=== PATIENT | male | born 1960 | race Caucasian/White ===

== ENCOUNTER → 2022-03-13 10:49 | Outpatient (BNVA) | payer OTHER, SELFPAY | PROVIDERS: PCP Internal Medicine; Visit Provider Physician Assistant Surgical | DX: Z13.89 Encounter for screening for other disorder (principal) ==

== ENCOUNTER → 2022-03-20 13:26 | Outpatient (BNVA) | payer OTHER, SELFPAY | PROVIDERS: PCP Internal Medicine; Visit Provider Physician Assistant Surgical | DX: Z13.89 Encounter for screening for other disorder (principal) ==

== ENCOUNTER 2022-03-23 08:32 | Outpatient (REF) | payer OTHER, SELFPAY ==
--- NOTE | ~2022-03-23 | XR_ITS ---
EXAMINATION: XR CHEST CLINICAL INFORMATION: Morbid obesity secondary to excess calories. COMPARISON: None TECHNIQUE: 2 views of the chest were obtained. FINDINGS: No significant abnormality is noted involving the heart, lungs, mediastinum, bony thorax or soft tissues. XR/XR chest 2V IMPRESSION: No acute cardiopulmonary process.
--- NOTE | 2022-03-23 08:39 | ECG_ITS ---
Test Reason : E66.01 Morbid Obesity Blood Pressure : / mmHG Vent. Rate : 071 BPM Atrial Rate : 071 BPM P-R Int : 186 ms QRS Dur : 098 ms QT Int : 384 ms P-R-T Axes : 080 040 021 degrees QTc Int : 417 ms Sinus rhythm with Premature ventricular complexes Otherwise normal ECG No previous ECGs available Referred By: Tiago Barcenas Electronically Signed By:BLANCA KNIGHT MD
[2022-03-23 08:48] LABS: MANUAL DIFF FLAG NO
[2022-03-23 09:46] LABS: Basophils Absolute Auto 0.1 X10*3/uL (0.0-0.2); Basophils Percent Auto 0.8 % (0-2); Eosinophils Absolute Auto 0.1 X10*3/uL (0.0-0.4); Eosinophils Percent Auto 0.8 % (0-4); Hematocrit 44.2 % (42.0-52.0); Hemoglobin 14.7 g/dl (14.0-18.0); Imm Gran Abs Auto 0.05 X10*3/uL (0.00-0.03); Imm Gran Pct Auto 0.5 % (0.0-0.4); Lymphocytes Absolute Auto 2.9 X10*3/uL (1.2-4.9); Lymphocytes Percent Auto 27.6 % (20-40); Mean Corpuscular HGB Conc 33.3 g/dl (31.0-36.0); Mean Corpuscular Hemoglobin 29.3 pg (27.0-33.0); Mean Corpuscular Volume 88.2 fL (80.0-98.0); Mean Platelet Volume 10.9 fL (9.4-12.4); Monocytes Absolute Auto 1.1 X10*3/uL (0.1-1.2); Monocytes Percent Auto 10.6 % (2-11); Neutrophils Absolute Auto 6.3 x10*3/uL (2.0-8.3); Neutrophils Percent Auto 59.7 % (45-73); Platelet Count 367 X10*3/uL (160-400); Red Blood Count 5.01 X10*6/uL (4.60-5.80); White Blood Count 10.6 X10*3/uL (4.8-10.8)
[2022-03-23 10:49] LABS: Estimated Average Glucose 134 mg/dL; Hemoglobin A1c % 6.3 %
[2022-03-23 11:11] LABS: Alanine Aminotransferase 20 U/L (0-40); Albumin Level 4.4 g/dL (3.5-5.0); Alkaline Phosphatase 72 U/L (39-117); Anion Gap 16 (12-20); Aspartate Amino Transferase 20 U/L (5-37); Bilirubin Total 2.7 mg/dL (0.0-1.0); Blood Urea Nitrogen 33 mg/dL (9-16); C Reactive Protein 1.06 mg/dL (< or = 0.50); Calcium 10.2 mg/dL (8.4-10.2); Carbon Dioxide 28 mmol/L (22-29); Chloride 102 mmol/L (96-108); Cholesterol 113 mg/dL; Estimated Glomerular Filt Rate 57; Glucose Random 70 mg/dL (60-115); HDL Cholesterol 33 mg/dL; Iron 69 mcg/dL (45-160); LDL Cholesterol Calculated 46 mg/dl; Percent Iron Saturation 25 % (15-50); Potassium 5.1 mmol/L (3.3-5.1); Sodium 141 mmol/L (135-145); Total Iron Binding Capacity 273 mcg/dL (228-428); Total Protein 7.3 g/dL (6.5-8.0); Triglycerides 174 mg/dL; Unsaturated Iron Binding 204 ug/dL
[2022-03-23 11:23] LABS: Ferritin 328 ng/mL (20-250); Folate 8.5 ng/mL (> or = 4.0); Insulin 105 uU/mL (2-29); TSH reflex Free T4 3.63 uIU/mL (0.32-4.0); Vitamin B12 416 pg/mL (200-900); Vitamin D 25-OH Total 14.5 ng/mL (>30)
[2022-03-27 13:15] LABS: Calcium (PTHI) 10.3 mg/dL (8.6-10.3); PTHI 41 pg/mL (16-77)
[2022-03-28 17:09] LABS: Zinc 74 mcg/dL (60-130)
[2022-03-30 03:54] LABS: Vitamin A 72 mcg/dL (38-98)
[2022-04-01 15:38] LABS: Vitamin B1 8 nmol/L (8-30)
== END 2022-03-23 08:33 | disposition home or self-care (01) ==
LOC: HO.XRAY 08:32
PROVIDERS: PCP Internal Medicine; Visit Provider Physician Assistant Surgical
DX: E66.01 Morbid (severe) obesity due to excess calories (principal); E11.9 Type 2 diabetes mellitus without complications; E78.00 Pure hypercholesterolemia, unspecified
CPT/HCPCS: 36415; 71046; 80053; 80061; 82306; 82607; 82728; 82746; 83036; 83525; 83540; 83970; 84425; 84443; 84590; 84630; 85025; 86140; 93005

== ENCOUNTER → 2022-03-27 09:44 | Outpatient (BNVA) | payer OTHER, SELFPAY | PROVIDERS: PCP Internal Medicine; Visit Provider Physician Assistant Surgical | DX: Z13.89 Encounter for screening for other disorder (principal) ==

== ENCOUNTER 2022-04-24 | Outpatient (REF) | payer OTHER, SELFPAY ==
[2022-04-27 15:06] LABS: H Pylori Breath Test Negative (Negative)
== END 2022-04-24 00:01 | disposition home or self-care (01) ==
LOC: HO.LNP
PROVIDERS: Visit Provider Physician Assistant Surgical
DX: E11.9 Type 2 diabetes mellitus without complications (principal); E78.00 Pure hypercholesterolemia, unspecified; E66.01 Morbid (severe) obesity due to excess calories
CPT/HCPCS: 83013

== ENCOUNTER → 2022-04-24 08:28 | Outpatient (BNVA) | payer OTHER, SELFPAY | PROVIDERS: PCP Internal Medicine; Visit Provider Physician Assistant Surgical | DX: Z13.89 Encounter for screening for other disorder (principal) ==

== ENCOUNTER → 2022-04-26 13:20 | Outpatient (BNVA) | payer OTHER, SELFPAY | PROVIDERS: PCP Internal Medicine; Visit Provider Counselor Mental Health | DX: Z13.89 Encounter for screening for other disorder (principal) ==

== ENCOUNTER → 2022-05-03 10:15 | Outpatient (BNVA) | payer OTHER, SELFPAY | PROVIDERS: PCP Internal Medicine; Visit Provider Dietitian, Registered | DX: E66.01 Morbid (severe) obesity due to excess calories (principal) | CPT/HCPCS: 97802 ==

== ENCOUNTER 2022-05-17 07:50 | Outpatient (REF) | payer OTHER, SELFPAY ==
--- NOTE | ~2022-05-17 | FL_ITS ---
EXAMINATION: XR FL UPPER GI WITH AIR CLINICAL INFORMATION: Morbid obesity. COMPARISON: None available. TECHNIQUE: Air-contrast upper GI examination. FINDINGS: There is normal apposition of the vocal cords while saying E. There is normal elevation of the soft palate while saying candy. No nasopharyngeal reflux or tracheal aspiration was identified. There is normal esophageal motility without persistent stricture or ulceration. No hiatal hernia is seen. No gastroesophageal reflux was seen including with water siphon test. Patient swallowed half-inch diameter barium tablet without difficulty. The stomach demonstrates normal distensibility without abnormal mass or ulceration. There was no delay in gastric emptying. The duodenal bulb and sweep appeared unremarkable. FLUOROSCOPY TIME: 1.6 minutes. DOSE AREA PRODUCT: 27.861 Gy-cm2 (joiner-centimeter squared). FL/FL upper GI w air IMPRESSION: Normal air-contrast upper GI examination.
--- NOTE | ~2022-05-17 | US_ITS ---
EXAMINATION: US COMPLETE ABDOMEN WITH LIVER ELASTOGRAPHY CLINICAL INFORMATION: Morbid/severe obesity due to excess calories. COMPARISON: None available. TECHNIQUE: Real-time imaging of the abdominal viscera. Noninvasive ultrasound liver fibrosis assessment is performed using Jatinder ElastPQ point quantification shear wave elastography (2D-SWE) with a C5-2 MHz transducer. Multiple elastography samples are obtained. FINDINGS: PANCREAS: The pancreas is not visualized. ABDOMINAL AORTA: The proximal, middle, and distal aortic segments are normal in caliber. INFERIOR VENA CAVA: Visualized portions are normal. LIVER: Normal. The liver demonstrates enlarged in size measuring 20 cm. There is normal contour and diffuse increased echogenicity. No focal lesion or intrahepatic biliary duct dilatation. The right lobe measures 22.9 cm in length. The left lobe measures 11.6 cm in length. Portal flow is hepatopedal. Shear wave liver elastography is limited as unable to penetrate 2 cm below the capsule. Median stiffness is 1.9 m/s (reference: normal median stiffness is 1.3 m/s or less). IQR/median stiffness to assess sampling precision is 0.22 (reference: good quality data set is IQR/median stiffness of 0.15 or less). GALLBLADDER: There are echogenic gallstones without wall thickening or tenderness. COMMON BILE DUCT: Normal in caliber measuring 0.5 cm in diameter. RIGHT KIDNEY: Normal. No hydronephrosis. No renal calculi or focal parenchymal lesions. The kidney measures 11.7 cm in maximum dimension. LEFT KIDNEY: Normal. No hydronephrosis. No renal calculi or focal parenchymal lesions. The kidney measures 13.9 cm in maximum dimension. SPLEEN: Normal. The spleen measures 13.1 cm in maximum dimension. FREE FLUID: None. US/US abdomen comp w elastography IMPRESSION: 1. Cholelithiasis without tenderness or wall thickening. Mild hepatic steatosis without focal lesion. 2. Limited liver elastography: Median liver stiffness measures 1.9 m/s corresponding to cACLD suggestive. REFERENCE: Society of Radiologists in Ultrasound Liver Stiffness Thresholds (2020): LIVER STIFFNESS THRESHOLDS: *Liver Stiffness equal or less than 1.3 m/s: High probability of being normal. *Liver Stiffness less than 1.7 m/s: In the absence of other known clinical signs, rules out compensated advanced chronic liver disease. *Liver Stiffness 1.7-2.1 m/s: Suggestive of compensated advanced chronic liver disease but need further test for confirmation. *Liver Stiffness over 2.1 m/s: Rules in compensated advanced chronic liver disease. *Liver Stiffness over 2.4 m/s: Suggestive of clinically significant portal hypertension. QUALITY OF DATA SET: *IQR/Median value equal or less than 0.15 implies a quality data set. *IQR/Median value over 0.15 implies a poor quality data set. SIGNIFICANT CHANGE FROM PRIOR EXAM: Significant change if liver stiffness measurement is 10% or greater from prior exam. OTHER CONSIDERATIONS: The stage of liver fibrosis may be overestimated in the setting of acute hepatitis, liver inflammation, elevated liver function tests, hepatic vascular congestion, obstructive cholestasis, non-fasting state, and infiltrative diseases such as amyloidosis and lymphoma. In some patients with NAFLD, the liver stiffness thresholds for compensated advanced chronic liver disease may be lower. In causes other than viral hepatitis and NAFLD, liver stiffness thresholds are not well established.
== END 2022-05-17 07:51 | disposition home or self-care (01) ==
LOC: HO.US 07:50
PROVIDERS: PCP Internal Medicine; Visit Provider Physician Assistant Surgical
DX: Z01.818 Encounter for other preprocedural examination (principal); E66.01 Morbid (severe) obesity due to excess calories; E11.9 Type 2 diabetes mellitus without complications; E78.00 Pure hypercholesterolemia, unspecified
CPT/HCPCS: 74246; 76705; 76981

== ENCOUNTER → 2022-05-24 10:05 | Outpatient (BNVA) | payer OTHER, SELFPAY | PROVIDERS: PCP Internal Medicine; Visit Provider Counselor Mental Health | DX: Z13.89 Encounter for screening for other disorder (principal) ==

== ENCOUNTER → 2022-06-02 12:32 | Outpatient (BNVA) | payer OTHER, SELFPAY | PROVIDERS: PCP Internal Medicine; Visit Provider Surgery | DX: Z13.89 Encounter for screening for other disorder (principal) ==

== ENCOUNTER → 2022-06-05 08:09 | Outpatient (BNVA) | payer OTHER, SELFPAY | PROVIDERS: PCP Internal Medicine; Visit Provider Surgery | DX: E66.01 Morbid (severe) obesity due to excess calories (principal); I10 Essential (primary) hypertension; G47.33 Obstructive sleep apnea (adult) (pediatric); E78.00 Pure hypercholesterolemia, unspecified; K21.9 Gastro-esophageal reflux disease without esophagitis; R11.0 Nausea; Z01.818 Encounter for other preprocedural examination ==

== ENCOUNTER 2022-06-22 06:25 | Inpatient (IN) | payer MEDICARE, SELFPAY ==
[2022-06-15 10:22] LABS: MANUAL DIFF FLAG NO
[2022-06-15 11:01] LABS: Basophils Absolute Auto 0.1 X10*3/uL (0.0-0.2); Basophils Percent Auto 0.6 % (0-2); Eosinophils Absolute Auto 0.1 X10*3/uL (0.0-0.4); Eosinophils Percent Auto 0.6 % (0-4); Hematocrit 42.2 % (42.0-52.0); Hemoglobin 13.8 g/dl (14.0-18.0); Imm Gran Abs Auto 0.04 X10*3/uL (0.00-0.03); Imm Gran Pct Auto 0.4 % (0.0-0.4); Lymphocytes Absolute Auto 2.1 X10*3/uL (1.2-4.9); Mean Corpuscular HGB Conc 32.7 g/dl (31.0-36.0); Mean Corpuscular Hemoglobin 28.7 pg (27.0-33.0); Mean Corpuscular Volume 87.7 fL (80.0-98.0); Mean Platelet Volume 10.5 fL (9.4-12.4); Monocytes Absolute Auto 0.8 X10*3/uL (0.1-1.2); Monocytes Percent Auto 7.8 % (2-11); Neutrophils Absolute Auto 7.4 x10*3/uL (2.0-8.3); Neutrophils Percent Auto 70.6 % (45-73); Platelet Count 289 X10*3/uL (160-400); Red Blood Count 4.81 X10*6/uL (4.60-5.80); Red Cell Distribution Width 14.9 % (11.0-16.0); White Blood Count 10.5 X10*3/uL (4.8-10.8)
[2022-06-15 11:11] LABS: Estimated Average Glucose 105 mg/dL; Hemoglobin A1c % 5.3 %
[2022-06-15 11:12] LABS: INTERNATIONAL NORM RATIO 1.1 (0.9-1.1); Prothrombin Time 12.4 SEC (10.0-13.1)
[2022-06-15 11:14] LABS: Partial Thromboplastin Time 36.7 SEC (26.0-36.4)
[2022-06-15 12:01] VITALS: BP 109/52; PULSE 59; RESP 16; O2SAT 100; BMI 51.1
--- NOTE | 2022-06-15 12:16 | HO.ANESPROP2 ---
Documented by User: Esther Doll NP 06/15/22 12:29 HPI - Anesthesia Eval Consult details Narrative: 61yo M for Gastrectomy Sleeve,EGD,poss diaphragmatic hernia,poss ventral hernia,poss open, Cardiac cleared (CAD with stents 2009, 2016) [facility] Active Problems Active Problems: All Active Problems (Updated 06/15/22 @ 11:56 by Enriqueta Armstrong RN) Morbid obesity (Acute) ASIM (obstructive sleep apnea) (Acute) HTN (hypertension) (Acute) Diabetes (Acute) Hypercholesterolemia (Acute) Adjustment disorder (Acute) Past Medical History Medical History Adjustment disorder Asthma CAD (coronary artery disease) Chronic renal insufficiency Diabetes DJD (degenerative joint disease) Elevated cholesterol History of MRSA infection HTN (hypertension) Hypothyroid Insulin dependent type 2 diabetes mellitus Liver fibrosis Lymphedema Murmur Nephrolithiasis PVCs (premature ventricular contractions) Sleep apnea Sleep apnea treated with continuous positive airway pressure (CPAP) Varicose vein of leg Family History Family History Mother Diabetes High cholesterol Hypertension Cancer Father Hypertension Diabetes Heart disease Sister Diabetes Family history of problems with anesthesia: No Surgical History Surgical History History of knee replacement Hx of colonoscopy Hx of heart artery stent Hx of varicose vein ligation History of Problems with Anesthesia: No Social History Social History Are you a primary career coach to a significant other at home: No Do you presently have visiting nurse or other home services: No Alcohol intake: current Alcohol intake frequency: holidays/special occasions only Patient Tobacco Use Status: Never used Tobacco Use of substances other than those prescribed or required for medical reasons: No Have you been hit, kicked, punched, or otherwise hurt by someone within the past year? If so, by whom?: No Are you DNR?: No Advance Directives: No (Tamiko GarciaUqyhqdy-[id number] contact) Advance Directives Information Provided: No (patient declined) Advance Directives on File: No Recently lost weight without trying: No Eating poorly because of decreased appetite: No Nutrition Risks: No Nutritional Risk Poor oral hygiene: No (hx extraction X2) Narrative Narrative: No recent illness No CP/SOB with high level of ativity at the gym 2 x's weekly Meds Allergies Allergy/AdvReac Type Severity Reaction Status Date / Time METFORMIN AdvReac Mild Diarrhea Uncoded 06/05/22 10:13 Home Medications Medication Instructions Recorded Confirmed Last Taken Type CPAP (CPAP Machine/Device) 03/13/22 06/05/22 Unknown History atorvastatin 80 mg tablet 80 mg PO BEDTIME 03/13/22 06/15/22 Unknown History dulaglutide 3 mg/0.5 mL 3 mg subcut QWEEK 03/13/22 06/05/22 Unknown History subcutaneous pen injector (Trulicity) levothyroxine 50 mcg capsule 50 mcg PO QAM 03/13/22 06/15/22 06/22/22 04:45 History metoprolol succinate 200 mg 200 mg PO QAM 03/13/22 06/15/22 06/22/22 04:45 History tablet,extended release 24 hr omega-3 fatty acids-fish oil 360 1 cap PO DAILY 03/13/22 06/15/22 06/21/22 History mg-1,200 mg capsule (Fish Oil) cholecalciferol (vitamin D3) 125 250 mcg PO QAM 06/14/22 06/15/22 Unknown History mcg (5,000 unit) capsule insulin glargine 100 unit/mL (3 100 unit subcut QA 06/14/22 06/15/22 06/22/22 04:45 History mL) subcutaneous pen (Basaglar KwikPen U-100 Insulin) aspirin 325 mg tablet 325 mg PO QAM 06/15/22 06/15/22 06/16/22 History cyanocobalamin (vitamin B-12) 500 500 mcg PO QAM 06/15/22 06/15/22 Unknown History mcg tablet felodipine 2.5 mg tablet,extended 2.5 mg PO DAILY 06/22/22 Unknown History release 24 hr fluticasone propionate 50 intranasal 06/22/22 Unknown History mcg/actuation nasal spray,suspension Exam Exam Date and Time: June 15, 2022 1216 Height,Weight and Vital Signs: Height 5 ft 9 in Weight 156.943 kg Last Vital Signs Pulse 59 06/15/22 12:01 Resp 16 06/15/22 12:01 BP 109/52 L 06/15/22 12:01 Pulse Ox 100 05/04/23 12:01 O2 Del Method Room Air 06/15/22 12:01 Pertinent Lab Results Pertinent Lab Results: Laboratory Tests 06/15/22 06/15/22 06/15/22 10:15 10:15 10:15 WBC 10.5 RBC 4.81 Hgb 13.8 L Hct 42.2 MCV 87.7 MCH 28.7 MCHC 32.7 RDW 14.9 Plt Count 289 MPV 10.5 Immature Gran % (Auto) 0.4 Neut % (Auto) 70.6 Lymph % (Auto) 20.0 [place] % (Auto) 7.8 Eos % (Auto) 0.6 Baso % (Auto) 0.6 Lymph # (Auto) 2.1 [place] # (Auto) 0.8 Eos # (Auto) 0.1 Baso # (Auto) 0.1 Abs Immat Gran (auto) 0.04 H Absolute Neuts (auto) 7.4 Absolute Nucleated RBC 0.000 Nucleated RBC % (auto) 0.0 PT 12.4 INR 1.1 APTT 36.7 H Estimat Average Glucose 105 Hemoglobin A1c % 5.3 Blood Type Antibody Screen 06/15/22 10:15 WBC RBC Hgb Hct MCV MCH MCHC RDW Plt Count MPV Immature Gran % (Auto) Neut % (Auto) Lymph % (Auto) [place] % (Auto) Eos % (Auto) Baso % (Auto) Lymph # (Auto) [place] # (Auto) Eos # (Auto) Baso # (Auto) Abs Immat Gran (auto) Absolute Neuts (auto) Absolute Nucleated RBC Nucleated RBC % (auto) PT INR APTT Estimat Average Glucose Hemoglobin A1c % Blood Type O Positive Antibody Screen NEGATIVE Narrative Narrative: EKG 03/2022 Vent. Rate : 071 BPM ? ? Atrial Rate : 071 BPM ?? P-R Int : 186 ms? QRS Dur : 098 ms ? ? QT Int : 384 ms ? ? ? P-R-T Axes : 080 040 021 degrees ?? QTc Int : 417 ms ? Sinus rhythm with Premature ventricular complexes ? Otherwise normal ECG No previous ECGs available Airway Mallampati Class: I TM Dist: <=3cm Neck ROM: Full Loose/Missing/Broken Teeth: Yes (Two lower molars missing) Heart: RRR Lungs: CTAB Assessment and Plan Assessment Anesthesia Assessment: Anesthesia Plan Discussed and PAT Visit Final Anesthetic Review Family History of Problems with Anesthesia: No History of Problems with Anesthesia: No Documented by User: Tamiko Lopez MD 06/22/22 09:50 [facility] Past Medical History Medical History Adjustment disorder Asthma CAD (coronary artery disease) Chronic renal insufficiency Diabetes DJD (degenerative joint disease) Elevated cholesterol History of MRSA infection HTN (hypertension) Hypothyroid Insulin dependent type 2 diabetes mellitus Liver fibrosis Lymphedema Murmur Nephrolithiasis PVCs (premature ventricular contractions) Sleep apnea Sleep apnea treated with continuous positive airway pressure (CPAP) Varicose vein of leg Family History Family History Mother Diabetes High cholesterol Hypertension Cancer Father Hypertension Diabetes Heart disease Sister Diabetes Surgical History Surgical History History of knee replacement Hx of colonoscopy Hx of heart artery stent Hx of varicose vein ligation Social History Social History Are you a primary career coach to a significant other at home: No Do you presently have visiting nurse or other home services: No Alcohol intake: current Alcohol intake frequency: holidays/special occasions only Patient Tobacco Use Status: Never used Tobacco Use of substances other than those prescribed or required for medical reasons: No Have you been hit, kicked, punched, or otherwise hurt by someone within the past year? If so, by whom?: No Are you DNR?: No Advance Directives: No (Tamiko GarciaUnfeqjj-[id number] contact) Advance Directives Information Provided: No (patient declined) Advance Directives on File: No Recently lost weight without trying: No Eating poorly because of decreased appetite: No Nutrition Risks: No Nutritional Risk Poor oral hygiene: No (hx extraction X2) Meds Allergies Allergy/AdvReac Type Severity Reaction Status Date / Time METFORMIN AdvReac Mild Diarrhea Uncoded 06/05/22 10:13 Home Medications Medication Instructions Recorded Confirmed Last Taken Type CPAP (CPAP Machine/Device) 03/13/22 06/05/22 Unknown History atorvastatin 80 mg tablet 80 mg PO BEDTIME 03/13/22 06/15/22 Unknown History dulaglutide 3 mg/0.5 mL 3 mg subcut QWEEK 03/13/22 06/05/22 Unknown History subcutaneous pen injector (Trulicity) levothyroxine 50 mcg capsule 50 mcg PO QAM 03/13/22 06/15/22 06/22/22 04:45 History metoprolol succinate 200 mg 200 mg PO QAM 03/13/22 06/15/22 06/22/22 04:45 History tablet,extended release 24 hr omega-3 fatty acids-fish oil 360 1 cap PO DAILY 03/13/22 06/15/22 06/21/22 History mg-1,200 mg capsule (Fish Oil) cholecalciferol (vitamin D3) 125 250 mcg PO QAM 06/14/22 06/15/22 Unknown History mcg (5,000 unit) capsule insulin glargine 100 unit/mL (3 100 unit subcut QAM 06/14/22 06/15/22 06/22/22 04:45 History mL) subcutaneous pen (Basaglar KwikPen U-100 Insulin) aspirin 325 mg tablet 325 mg PO QAM 06/15/22 06/15/22 06/16/22 History cyanocobalamin (vitamin B-12) 500 500 mcg PO QAM 06/15/22 06/15/22 Unknown History mcg tablet felodipine 2.5 mg tablet,extended 2.5 mg PO DAILY 06/22/22 Unknown History release 24 hr fluticasone propionate 50 intranasal 06/22/22 Unknown History mcg/actuation nasal spray,suspension Exam Narrative Narrative: EKG 03/2022 Vent. Rate : 071 BPM ? ? Atrial Rate : 071 BPM ?? P-R Int : 186 ms? QRS Dur : 098 ms ? ? QT Int : 384 ms ? ? ? P-R-T Axes : 080 040 021 degrees ?? QTc Int : 417 ms Sinus rhythm with Premature ventricular complexes ? Otherwise normal ECG No previous ECGs available Airway Mallampati Class: III (full neck) Assessment and Plan Final Anesthetic Review NPO: Yes ASA Class: III Final Preanesthetic Review: Meds/Allgs Chart Reviewed, Consent Obtained/Reviewed and Anes Risks/Benef Reviewed Patient Risk: Intermediate Procedure Risk: Intermediate Anesthetic Plan Anesthetic Plan: GA Disposition: Standard PACU
[2022-06-15 12:24] LABS: Alanine Aminotransferase 11 U/L (0-40); Albumin Level 4.2 g/dL (3.5-5.0); Alkaline Phosphatase 76 U/L (39-117); Anion Gap 14 (12-20); Aspartate Amino Transferase 14 U/L (5-37); Bilirubin Total 2.5 mg/dL (0.0-1.0); Blood Urea Nitrogen 38 mg/dL (9-16); C Reactive Protein 2.07 mg/dL (< or = 0.50); Calcium 9.4 mg/dL (8.4-10.2); Carbon Dioxide 24 mmol/L (22-29); Chloride 105 mmol/L (96-108); Cholesterol 86 mg/dL; Creatinine Clr Calc Pharmacy 101.3; Estimated Glomerular Filt Rate > 60; Glucose Random 74 mg/dL (60-115); HDL Cholesterol 24 mg/dL; LDL Cholesterol Calculated 41 mg/dl; Potassium 4.8 mmol/L (3.3-5.1); Sodium 138 mmol/L (135-145); Total Protein 7.1 g/dL (6.5-8.0); Triglycerides 105 mg/dL
[2022-06-15 12:45] LABS: Insulin 71 uU/mL (2-29); TSH reflex Free T4 3.11 uIU/mL (0.32-4.0)
--- NOTE | 2022-06-16 22:44 | MHC.SHP ---
Pre-Procedural Eval Section A Date of Service: 06/16/22 The patient is an INPATIENT: Yes The History & Physical has been completed within 30 days and I have reviewed it.: Yes Section B Chief Complaint: morbid obesity Relevant Family History (Specify if Yes): No Relevant Social History: None Present Medications: None Medical History: No relevant PMH History of Previous Operations: No relevant previous surgery Allergies: Allergies Allergy/AdvReac Type Severity Reaction Status Date / Time METFORMIN AdvReac Mild Diarrhea Uncoded 06/05/22 10:13 Review of Systems Sugical H&P ROS: Negative: Constitution, Cardiovascular, Respiratory, Neurological, Psychiatric, Hem-Onc, Allergic/Immunologic, Gastrointestinal, Genitourinary, Musculoskeletal, Integumentary, Endocrine and Eyes/Ears/Nose/Throat Exam Surgical H&P Exam: Normal: HEENT, Normal: Heart, Normal: Lungs, Normal: Extremities, Normal: Abdomen, Normal: Skin and Normal: Neurological Plan Diagnosis/Plan: Unchanged I have reviewed the history and physical and performed a pertinent physical examination on my patient. No changes have occurred unless specified. Time Spent With Patient Time: Total time managing care of this patient today ____ minutes.
[2022-06-21 13:01] LABS: COVID-19 Test Negative (Negative); IDNOW Serial# 08D9AD1C
[2022-06-22] VITALS (14 sets, daily range): BP systolic 113–167; BP diastolic 43–79; PULSE 50–73; RESP 16–20; TEMP 36–36.6; O2SAT 96–100
[2022-06-22] MEDS: Dextrose 5 % 250 ML IV (07:00)
[2022-06-22] MEDS: Aprepitant 32 MG/4.4 ML VIAL IVPUSH (07:24)
[2022-06-22] MEDS: Lactated Ringers 1,000 ML 999 ML IV (07:26)
--- NOTE | 2022-06-22 07:35 | PM.OP ---
Brief Operative Note Date of Service: 06/22/22 Pre-op diagnosis: Morbid obesity with comorbidities (see below) Post-op diagnosis: same Procedure: INITIAL PATIENT BMI ON PRESENTATION AT OUR OFFICE: 55.7 kg/m2 LAST BMI BEFORE SURGERY: 50.7 kg/m2 COMORBIDITIES: Sleep apnea on CPAP, insulin dependent diabetes, hypertension, hyperlipidemia, hypothyroidism, asthma, liver fibrosis, DJD, nephrolithiasis, CAD ?The patient presented to the Weight Management Program with significant obesity that was negatively impacting the patient's comorbidities as listed above.? The program is a phased program with a special focus on preoperative medical weight management to promote substantial weight loss and prepare the patients for the second phase of the program: bariatric surgery. The patient participated in an intensive weekly lifestyle ?intervention and exercise program during which the patient ?has lost between the initial office visit and the last preoperative visit 35.2 lbs, or 9.32% of initial actual body weight. It was deemed appropriate for the patient to now have bariatric surgery. In light of the current Covid-19 pandemic and the well documented strong association of obesity and increased risk of worse outcomes if infected with Covid-19 (REFERENCES:https://pubmed.ncbi.nlm.nih.gov/56057017/,?https://pubmed.ncbi.nlm.nih.gov/65111406/), any delay in undergoing bariatric surgery may lead to the patient's worsening health condition and increased?risk of more severe Covid-19 disease if infected. In addition a recent?study from [facility] published in [facility] on 02/07/2021 ([email or web address]) found that, among patients with obesity, substantial weight loss achieved with surgery was associated with improved outcomes of COVID-19 infection. The findings suggest that obesity can be a modifiable risk factor for the severity of COVID-19 infection. In addition, the patient met the BMI-criteria for bariatric surgery based on the BMI on initial presentation. The patient should not be penalized for achieving such weight loss because ?it is not sustainable long-term without surgical intervention and it was achieved in preparation for bariatric surgery ?under my direction and based on my published research ([email or web address] and?https://www.soard.org/article/[email or web address])73647-X/pdf) ?that a 10% preoperative weight loss improves long-term weight loss after surgery and reduces perioperative complications.? Insurance carriers such as [facility] have endorsed my recommendations ?and have included in their policies criteria to include a 10% preoperative weight loss requirement. PROCEDURE: Esophago-gastroscopy, laparoscopic sleeve gastrectomy and laparoscopic gastropexy INDICATIONS: This is a 61 year-old male who was electively scheduled for laparoscopic, possibly open sleeve gastrectomy. The risks and complications of the procedure were discussed with the patient in advance, particularly the possibility of ; pulmonary embolism; staple line leak; bleeding; GERD; cardiac, pulmonary, or renal complications; as well as long-term problems such as insufficient weight loss, vitamin deficiency, strictures, or ulcers. The patient understood all the risks, and was in agreement to proceed with surgery. DESCRIPTION OF PROCEDURE: After informed consent was obtained from the patient, the patient was given preoperative antibiotics, and was transferred to the operating room. After successful induction of general anesthesia, pneumatic compression devices were placed on both lower extremities. An upper endoscopy was performed next. The oropharynx and esophagus appeared to be within normal limits. There was no diaphragmatic hernia present consistent with the findings of the preoperative upper GI. The stomach was entered. Then after all fluid and air were suctioned and the stomach was fully decompressed, the scope was withdrawn and secured in the mid esophagus. The patient was then prepped and draped in the usual sterile manner, and abdominal access was established at the right upper quadrant with the Jairon technique. A 12 mm blunt port was inserted, and the abdomen was insufflated with CO2 to a pressure of 15 mmHg. Under direct visualization, additional ports were placed, specifically two 5 mm Versi-step ports to the left upper quadrant, and a 5 mm Versi-Step port to the right upper quadrant. 1% lidocaine plain was used to infiltrate all port sites as well as all fascia defects. Using the EndoClose suture passer device, I placed a #1 Polysorb tie across the falciform ligament in order to retract it up against the abdominal wall and prevent injury of the ligament with our instruments during the procedure. Following that, the patient was placed in a steep reverse Trendelenburg position. An additional 5 mm port was placed to the right flank for the Mediflex retractor that was used to retract the left lobe of the liver. The gastro-esophageal fat pad was opened with the ultrasonic device (Thunderbeat, Olympus) and the anterior esophagus and hiatus were exposed. The angle of His was opened with the ultrasonic device the fundus of the stomach from any diaphragmatic and splenic attachments. I then opened the gastrocolic ligament between the transverse colon and the greater curvature of the stomach with the ultrasonic device to enter the lesser sac and facilitate the ligation of the short gastric vessels. I started at a mid-point along the greater curvature and using the Thunderbeat, all short gastric vessels were divided all the way to the angle of His until the left camden was completely dissected at its entirety. I then divided the gastro-colic ligament distally to a distance of about 3-4 cm proximal to the pylorus.? The stomach was then divided transversely with three Endo BECKY-45 purple and three BECKY-60 articulating purple loads using the SIGNIA stapler and loads. Every effort was made that the gastric sleeve had a tubular shape and an even caliber throughout. Once the sleeve resection was completed, the staple line of the gastric sleeve was reinforced with Hemoclips. The resected stomach was retrieved without difficulty from the Jairon port. A gastropexy was then performed in order to prevent postoperative GERD and partial gastric volvulus. Several interrupted 2.0 Surgidac sutures were placed between the sleeve's staple line and the previously divided greater omentum and gastro-colic ligament using the Endo-Stitch device. ?An upper endoscopy was performed. There was no narrowing at the GE junction. The scope was easily advanced all the way to the pylorus which was clearly visualized. There was no narrowing anywhere and the sleeve's caliber was even throughout. The sleeve's staple line was inspected and there was no evidence of ischemia, bleeding or dehiscence. At that point the gastroscope was withdrawn from the patient?s mouth while we were decompressing the bowel and the stomach from any remaining air. I looked into the lesser sac to see how the sleeve was situating and it was situating well. There was no bleeding from the staple line, spleen, or short gastric vessels. The Mediflex retractor was removed, and the undersurface of the liver was inspected and there was no bleeding. The patient was placed in supine position. I closed the fascial defect of the 12 mm port site with a figure of eight #1 Polysorb suture. Then 30cc Ropivacaine plain with 10 mg of Dexamethasone were used to infiltrate the fascial closure as well as all skin incisions. At this point, the abdomen was deflated, all ports were removed under direct vision, and no bleeding was noted from any of the port sites. The skin incisions were irrigated with saline and were closed with 4-0 absorbable monofilament sutures. Steri-Strips and OpSites were used to cover all incisions. The patient was extubated and was transferred in stable condition to the recovery room for further care. I was present and performed all roberts parts of the procedure. Mr. Barcenas was the first helper. There were no residents to assist with this case. Ambrosio Ronquillo MD, PhD, FACS Surgeon: Joni Ronquillo MD Anesthesia: GETA, local and other (TAP block ) Was an Vp Strategic Planning used for this Procedure?: No Vp Strategic Planning: Tiago Barcenas Estimated blood loss (mL): 10 IV fluids (mL): 2,500 Urine output (mL): 0 (No Robins to record output) Pathology: other (Stomach) Condition: stable Disposition: PACU
[2022-06-22 07:36] LABS: Glucose, Whole Blood 65 mg/dL (60-115)
--- NOTE | 2022-06-22 07:39 | PM.PNGS ---
Subjective Subjective Date of Service: 06/23/22 Interval history: Feels well. Mild incisional pain. He is tolerating phase 1 bariatric diet Physical Exam Vital Signs: Vital Signs: Last Vital Signs Temp 97.0 F 06/22/22 07:13 Pulse 73 06/22/22 07:13 Resp 18 06/22/22 07:13 BP 127/43 L 06/22/22 07:13 Pulse Ox 99 06/22/22 07:13 O2 Del Method Room Air 06/22/22 07:13 BMI result Body Mass Index 51.1 GI: Inspection: Yes normal to inspection, Yes incision (clean, dry and intact) and Yes obesity Palpation (GI): Soft to palpation Extrem: Right lower extremity: normal to inspection (no calf tenderness) Left lower extremity: normal to inspection (no calf tenderness) Objective Data Active Medications Lactated Ringer's (Lr) 1,000 mls @ 100 mls/hr IVCONT .Q10H CHARLI Lactated Ringer's (Lr) 1,000 mls @ 999 mls/hr IV .Q1H1M CHARLI Stop: 06/22/22 08:30 Last Admin: 06/22/22 07:26 Dose: 999 mls/hr Documented By: MANUELA Dextrose (D5w) 250 mls @ 0 mls/hr IV .Q0M PRN PRN Reason: Per Protocol Last Admin: 06/22/22 07:00 Dose: 250 mls/hr Documented By: MANUELA Labs 06/15/22 10:15 06/15/22 10:15 Labs: Laboratory Results - last 24 hr 06/21/22 06/22/22 12:25 06:20 POC Glucose 65 COVID-19 ([facility]) Negative COVID-19 Clin Com See Note Procedures Date of Service Date of Service: 06/23/22 Progress Note: A&P Assessment and plan (1) Morbid obesity: Status: Acute Assessment and Plan: s/p laparoscopic sleeve gastrectomy and gastropexy Doing well Will check am labs and if OK the patient will be discharged home (2) HTN (hypertension): Status: Acute (3) Hypercholesterolemia: Status: Acute (4) Sleep apnea treated with continuous positive airway pressure (CPAP): Status: Acute (5) Insulin dependent type 2 diabetes mellitus: Status: Acute (6) DJD (degenerative joint disease): Status: Acute (7) CAD (coronary artery disease): Status: Acute (8) Hypothyroid: Status: Acute (9) Liver fibrosis: Status: Acute (10) Nephrolithiasis: Status: Acute (11) Asthma: Status: Acute (12) S/P laparoscopic sleeve gastrectomy: Status: Acute (13) Congenital intra-abdominal adhesions: Status: Acute Time Spent With Patient Time: Total time managing care of this patient today ____ minutes. Quality Stroke Does the patient have a stroke diagnosis?: No VTE Prior VTE?: No VTE Risk Level:: Surgical - moderate VTE Device Contraindication: N/A - Device Ordered VTE Drug Contraindication: Treatment Not Indicated
[2022-06-22 07:42] LABS: Glucose, Whole Blood 69 mg/dL (60-115)
--- NOTE | 2022-06-22 10:10 | PM.DS ---
DS: Providers Provider Date of Service: 06/23/22 Date of admission: 06/22/22 06:25 Primary care physician: Felix Maldonado MD DS: Diagnosis Discharge Diagnosis (1) Morbid obesity: Status: Acute (2) HTN (hypertension): Status: Acute (3) Hypercholesterolemia: Status: Acute (4) Sleep apnea treated with continuous positive airway pressure (CPAP): Status: Acute (5) Insulin dependent type 2 diabetes mellitus: Status: Acute (6) DJD (degenerative joint disease): Status: Acute (7) CAD (coronary artery disease): Status: Acute (8) Hypothyroid: Status: Acute (9) Liver fibrosis: Status: Acute (10) Nephrolithiasis: Status: Acute (11) Asthma: Status: Acute DS: Summary Hospital Course Hospital Course: ADMITTING DIAGNOSIS: morbid obesity, ASIM, HTN, DM, HLD, CAD, CKD, hypothyroid ? DISCHARGE DIAGNOSIS: same, s/p laparoscopic sleeve gastrectomy ? PAST SURGICAL HISTORY: L TKR, cardiac stent ? PROCEDURE: upper endoscopy, laparoscopic sleeve gastrectomy ? DISCHARGE SUMMARY: ? History of Present Illness: ? The patient is a?61 year-old woman with a BMI of?55.8 kg/m2 and associated co-morbidities as described above. The patient had extensive work-up,lost?32.7 lbs preoperatively and was electively scheduled for laparoscopic, possible open sleeve gastrectomy and gastropexy. Risks and complications of the surgery were discussed with the patient in advance, particularly the possibility of , pulmonary embolism, anastomotic leak, bleeding, bowel injury, GERD, cardiac, renal or pulmonary complications. The patient understood all the risks and was in agreement with the surgical plan. ? Hospital Course: ? The patient underwent an uneventful laparoscopic sleeve gastrectomy with gastropexy on the day of admission. Postoperatively, the patient was transferred to the surgical floor. The patient received IV Acetaminophen and IV dilaudid for pain control. Patient was started on bariatric phase 1 diet POD #0. On postoperative day one, the patient was feeling well without nausea, vomiting, fevers, or tachycardia. The patient had some mild incisional pain and the abdomen was soft. ? On the morning of postoperative day one, the patient was continued on 1 ounce of water or ice every half hour. During the day, the patient did fairly well, having some incisional pain, but able to ambulate adequately and to tolerate liquids well. ? Since the patient is doing well, we decided that the patient was ready to be discharged. The patient was given instructions to follow-up with me next week and to call my office for any fever over 101, persistent abdominal pain, nausea, vomiting, GERD, symptoms of DVT such as calf tenderness, or leg swelling, or pulmonary embolism such as chest pain or shortness of breath. The patient was also instructed to drink 40-60 ounces of liquids per day using the 1-ounce cups. The patient had been given prescriptions for Tylenol for pain, Zofran prn for nausea, and pantoprazole and carafate previously. The patient was encouraged to ambulate and use the incentive spirometer. The patient was allowed to shower, but no baths, and encouraged to stay active at home. All of these instructions were given to the patient personally. All questions were answered and the patient understood all instructions, the instructions were also given to the patient in print. Time Spent with Patient Time attestation: Total time managing care of this patient today ____ minutes. Discharge coordination time: Less than 30 minutes Quality: Safe Use of Opioids Does Pt have an Active Cancer Diagnosis on the Problem List?: No Quality: Stroke Does the patient have a stroke diagnosis?: No Physical Exam Vital Signs: Vital Signs: Last Vital Signs Temp 97.6 F 06/22/22 10:05 Pulse 56 06/22/22 10:05 Resp 20 06/22/22 10:05 BP 118/48 L 06/22/22 10:05 Pulse Ox 100 06/22/22 10:05 O2 Del Method Simple Mask 06/22/22 10:05 O2 Flow Rate 8 06/22/22 10:05 BMI result Body Mass Index 51.1 DS: Data Data Completed and Pending Pending studies at discharge: Pending at discharge 06/22/22 09:35 Surgical [PTH] Routine Labs on day of discharge: Laboratory Results - last 24 hr 06/21/22 06/22/22 06/22/22 12:25 06:20 07:28 POC Glucose 65 69 COVID-19 ([facility]) Negative COVID-19 Clin Com See Note Discharge Plan Discharge Anticipated Discharge Date/Time: 06/23/22 10:00 Patient Disposition: Home, Self-Care Discharge Diagnosis: s/p laparoscopic sleeve gastrectomy Referrals: Felix Maldonado MD [Primary Care Provider] - 1 Week Discharge Medications: Continued atorvastatin 80 mg tablet 80 mg PO BEDTIME levothyroxine 50 mcg capsule 50 mcg PO QAM (DME) CPAP Machine/Device Device See Rx Instructions .Route Rx Instructions: As directed pantoprazole 40 mg tablet,delayed release (DR/EC) 40 mg PO DAILY Qty: 30 2RF sucralfate 100 mg/mL suspension 10 ml PO BID Qty: 400 2RF ondansetron 4 mg tablet,disintegrating 4 mg PO Q12H Qty: 20 0RF Rx Instructions: Only take one every 12 hours as needed if you have nausea Held insulin glargine [Basaglar KwikPen U-100 Insulin] 100 unit/mL (3 mL) insulin pen 90 unit subcut QAM Hold Instructions: Resume on 06/24/22. Check blood sugar daily and report to Dr. Ronquillo before you take the Basaglar lisinopril 40 mg tablet 40 mg PO DAILY Hold Instructions: Resume on 06/24/22. Check your blood pressure every evening and send it to Dr. Ronquillo. Do not take the medication before you hear from Dr. Ronquillo. Do not take the medication if your blood pressure is below 120/70 mmHg. metoprolol succinate 200 mg tablet extended release 24 hr 200 mg PO QAM Hold Instructions: Resume on 06/24/22. Check your blood pressure every evening and send it to Dr. Ronquillo. Do not take the medication before you hear from Dr. Ronquillo. Do not take the medication if your blood pressure is below 120/70 mmHg. omega-3 fatty acids-fish oil [Fish Oil] 360-1,200 mg capsule 1 cap PO DAILY Hold Instructions: Resume on 07/03/22. Discontinued cyanocobalamin (vitamin B-12) 500 mcg tablet 500 mcg PO QAM Trulicity 3 mg/0.5 mL pen injector 3 mg subcut SA Discharge Orders: Discharge Order (Routine); Ordered 06/23/22 Ordered By: Joni Ronquillo Activity on Discharge: No heavy lifting Stand Alone Forms: Patient Portal Discharge page Care Plan Goals: weight loss Health Concerns: morbid obesity Plan of Treatment: No tub baths, sex or returning to work until discussed at first post op appointment. No exercise, alcohol, tobacco or illegal drug use. Continue to use incentive spirometer hourly while awake. Walk in home for 5- 10 minutes every 2 hours during the first week. Follow all instructions in the bariatric handbook and call with any questions.Discharge Instructions 1. Please call your doctor or come back to the emergency room should any new symptoms arise. 2. You will receive a courtesy call from [facility] 24-48 hours after discharge. 3. Activity: abstain from alcohol, practice limited stair climbing, no bending, no driving, no exercise, no illicit substances, no lifting, no sex, no tub bath, no work. 4. Diet: continue as discussed with Dr. Ronquillo. 5. Dressing Change/Wound Care: Your incision is covered by clear bandages and guaze underneath. If the area is tender, you may apply an ice pack for short intervals (no more than 20 minutes on, followed by at least 20 minutes off). Do not apply heat. Do not use creams, lotions, or topical antibiotics unless instructed to do so by your surgeon. These can cause infection or allergic reaction. 6. Call your doctor if: - Your temperature exceeds 101.5 F - You experience excessive pain or swelling - You have an unexpected reaction to medication - You have excessive bleeding - You experience continued vomiting/nausea - Your incision begins to separate - Your incision shows signs of infection such as increased redness, swelling, excessive pain, heat, or drainage (light blood or clear fluid is normal) 7. General instructions: No lifting greater than 5 lbs for the next 4 weeks[address] driving within 24 hours of taking narcotic pain medications. If you do not move your bowels in the next 2 days, please take milk of magnesia over the counter. Please follow the post op diet and do not advance your diet until you are seen in the office in about 2 weeks. Please walk around your home every hour or two to prevent blood clots from forming in your legs. You do not need to wake from sleeping to walk. Please sleep in a bed or couch to prevent kinking at the hips and knees. Please take your incentive spirometer (your lung litigation partner) home with you and use it for the next few days to prevent pneumonias. You may shower, no hot tubs, baths or swimming pools. Please call the office with any questions or concerns such as increasing abdominal pain, fever, chills, shortness of breath, chest pain, leg pain or swelling, or redness or drainage from your incisions. Please stay on stage 3 diet which includes sugar free clear liquids such as ice pops and jello and broth and crystal light. Avoid all carbonation. Please drink 3 protein shakes with at least 25-30 grams of protein daily or 3 of the Celebrate 4:1 shakes which can be purchased in our office. The Celebrate shakes have all of the bariatric vitamins you need if you consume these shakes. If you are drinking other protein shakes, you will need to purchase the Celebrate multivitamins and calcium that we provide in the office (they will provide all the vitamins you need). Please make sure you are consuming at least 40-60 ounces of water in addition to your 3 protein shakes daily. Do not hesitate to contact the office with any questions at . The patient's medical history has been reviewed and they are considered low risk for post op DVT and therefore DVT prophylaxis is not considered necessary. Travel after surgery was reviewed. The patient has not disclosed any travel plans during the first 30 days after surgery and they have been advised that within the first 30 days after surgery any bus, plane, train or car travel over 2 hours in duration is contraindicated due to the possibility of developing blood clots from immobility. Any travel, needs to include periods of ambulation of 10 minutes in duration every 2 hours.? The patient was instructed to discuss any plans for travel during this period with their bariatric surgeon. Assessment: stable s/p laparoscopic sleeve gastrectomy
[2022-06-22 10:11] LABS: Glucose, Whole Blood 97 mg/dL (60-115)
[2022-06-22] MEDS: Lactated Ringers 1,000 ML 100 ML IVCONT ×2 (10:37→20:12)
[2022-06-22 11:10] LABS: Hematocrit 39.8 % (42.0-52.0); Hemoglobin 13.1 g/dl (14.0-18.0)
[2022-06-22 11:22] LABS: Anion Gap 11 (12-20); Blood Urea Nitrogen 23 mg/dL (9-16); Carbon Dioxide 25 mmol/L (22-29); Chloride 105 mmol/L (96-108); Creatinine Clr Calc Pharmacy 98.6; Estimated Glomerular Filt Rate > 60; Glucose Random 103 mg/dL (60-115); Potassium 4.4 mmol/L (3.3-5.1); Sodium 137 mmol/L (135-145)
[2022-06-22 12:25] LABS: Glucose, Whole Blood 103 mg/dL (60-115)
[2022-06-22] MEDS: ceFAZolin Sodium/Dextrose,Iso 2 GM/50 ML PIGGYBACK IV (13:13)
--- NOTE | 2022-06-22 15:21 | PHA.MEDREC ---
Pharmacy Consult ? Medication Reconciliation Pharmacy has reviewed the medication reconciliation completed by nursing. Spoke to patient to confirm medcation. reprots no long on felodipine or vitamin d3. Delfina Ocasio, ReganD
[2022-06-22 16:42] LABS: Glucose, Whole Blood 131 mg/dL (60-115)
[2022-06-22] MEDS: 0.9 % Sodium Chloride Flush 3 ML SYRINGE IVFLUSH (20:11)
[2022-06-22] MEDS: Famotidine/PF 20 MG/2 ML VIAL IVPUSH (20:11)
[2022-06-22 20:19] LABS: Glucose, Whole Blood 136 mg/dL (60-115)
[2022-06-22 23:56] LABS: Glucose, Whole Blood 126 mg/dL (60-115)
[2022-06-23 03:10] VITALS: BP 152/74; PULSE 69; RESP 18; TEMP 36.7; O2SAT 97
[2022-06-23 03:18] LABS: Glucose, Whole Blood 122 mg/dL (60-115)
[2022-06-23] MEDS: amLODIPine Besylate 2.5 MG TABLET PO (03:41)
[2022-06-23] MEDS: Lactated Ringers 1,000 ML 100 ML IVCONT (05:47)
[2022-06-23 06:50] LABS: MANUAL DIFF FLAG NO
[2022-06-23 06:54] LABS: Basophils Percent Auto 0.3 % (0-2); Hematocrit 40.7 % (42.0-52.0); Hemoglobin 13.7 g/dl (14.0-18.0); Imm Gran Abs Auto 0.05 X10*3/uL (0.00-0.03); Imm Gran Pct Auto 0.4 % (0.0-0.4); Lymphocytes Absolute Auto 1.6 X10*3/uL (1.2-4.9); Lymphocytes Percent Auto 11.3 % (20-40); Mean Corpuscular HGB Conc 33.7 g/dl (31.0-36.0); Mean Corpuscular Hemoglobin 28.8 pg (27.0-33.0); Mean Corpuscular Volume 85.7 fL (80.0-98.0); Mean Platelet Volume 10.5 fL (9.4-12.4); Monocytes Absolute Auto 1.2 X10*3/uL (0.1-1.2); Monocytes Percent Auto 8.5 % (2-11); Neutrophils Absolute Auto 11.1 x10*3/uL (2.0-8.3); Neutrophils Percent Auto 79.5 % (45-73); Platelet Count 296 X10*3/uL (160-400); Red Blood Count 4.75 X10*6/uL (4.60-5.80); Red Cell Distribution Width 14.5 % (11.0-16.0); White Blood Count 13.9 X10*3/uL (4.8-10.8)
[2022-06-23 07:15] LABS: Anion Gap 16 (12-20); Blood Urea Nitrogen 27 mg/dL (9-16); Calcium 9.2 mg/dL (8.4-10.2); Carbon Dioxide 22 mmol/L (22-29); Chloride 105 mmol/L (96-108); Creatinine Clr Calc Pharmacy 96.1; Estimated Glomerular Filt Rate > 60; Glucose Random 113 mg/dL (60-115); Potassium 5.4 mmol/L (3.3-5.1); Sodium 138 mmol/L (135-145)
[2022-06-23 07:16] LABS: Glucose, Whole Blood 120 mg/dL (60-115)
[2022-06-23 07:32] VITALS: BP 110/62; PULSE 60; RESP 16; TEMP 37.1; O2SAT 100
[2022-06-23] MEDS: Famotidine/PF 20 MG/2 ML VIAL IVPUSH (07:50)
[2022-06-23] MEDS: Metoprolol Succinate ER 100 MG TAB.ER.24H 200 MG PO (07:50)
[2022-06-23] MEDS: lisinopriL 40 MG TABLET PO (08:06)
--- NOTE | 2022-06-23 08:41 | MHC.CM.PN ---
pt dcd home no skilled services ordered by
[2022-06-23 09:50] VITALS: O2SAT 96
--- NOTE | 2022-06-23 12:00 | HO.POSTANES ---
Post Anesthesia Evaluation Post Anesthesia Evaluation Vital Signs: Vital Signs Temp Pulse Resp BP Pulse Ox O2 Del Method 06/23/22 09:50 96 Room Air 06/23/22 07:32 98.7 F 60 16 110/62 100 Room Air 06/23/22 03:10 98.0 F 69 18 152/74 H 97 Room Air Anesthesia: General Endotracheal-GETA Mental Status: Awake Pain Control: Satisfactory Nausea/Vomiting: None Hydration: Adequate Anesthesia-Related Issues: No Anes. Related Issues
== END 2022-06-23 11:32 | disposition home or self-care (01) | DRG 621 ==
LOC: HO.SSSA 10:13 → HO.S3 11:48
PROVIDERS: Physician Assistant Surgical; Admitting Provider Surgery; PCP Internal Medicine; Visit Provider Surgery
PROC: 0DB64Z3 Excision of Stomach, Percutaneous Endoscopic Approach, Vertical (ICD-10-PCS; CPT 43845; principal; 2022-06-22 07:30)
DX: E66.01 Morbid (severe) obesity due to excess calories (principal); J45.909 Unspecified asthma, uncomplicated; I25.10 Atherosclerotic heart disease of native coronary artery without angina pectoris; M19.90 Unspecified osteoarthritis, unspecified site; E11.9 Type 2 diabetes mellitus without complications; I10 Essential (primary) hypertension; E78.5 Hyperlipidemia, unspecified; E03.9 Hypothyroidism, unspecified; K74.00 Hepatic fibrosis, unspecified; Z20.822 Contact with and (suspected) exposure to COVID-19; Z68.43 Body mass index [BMI] 50.0-59.9, adult; Z86.14 Personal history of Methicillin resistant Staphylococcus aureus infection; Z88.8 Allergy status to other drugs, medicaments and biological substances; Z79.4 Long term (current) use of insulin; Z79.890 Hormone replacement therapy; Z79.899 Other long term (current) drug therapy
CPT/HCPCS: 36415; 80048; 80053; 80061; 82947; 83036; 83525; 84443; 85014; 85018; 85025; 85610; 85730; 86140; 86850; 86900; 86901; 87635; 88307; 88342; 94660; A4649; C9088; C9145; J0131; J0690; J1100; J1170; J2250; J2370; J2795; J3010

== ENCOUNTER → 2022-06-27 10:21 | Outpatient (BNVA) | payer MEDICARE, SELFPAY | PROVIDERS: PCP Internal Medicine; Referring Provider Internal Medicine; Visit Provider Physician Assistant Surgical | DX: Z90.3 Acquired absence of stomach [part of] (principal) | CPT/HCPCS: 99212 ==

== ENCOUNTER → 2022-07-21 12:30 | Outpatient (BNVA) | payer MEDICARE, SELFPAY | PROVIDERS: PCP Internal Medicine; Visit Provider Physician Assistant Surgical | DX: E66.01 Morbid (severe) obesity due to excess calories (principal); Z68.42 Body mass index [BMI] 45.0-49.9, adult | CPT/HCPCS: 99212 ==

== ENCOUNTER → 2022-08-08 13:37 | Outpatient (BNVA) | payer MEDICARE, SELFPAY | PROVIDERS: PCP Internal Medicine; Visit Provider Dietitian, Registered | DX: E66.9 Obesity, unspecified (principal); Z68.42 Body mass index [BMI] 45.0-49.9, adult; E11.9 Type 2 diabetes mellitus without complications; Z79.4 Long term (current) use of insulin; Z98.84 Bariatric surgery status; Z71.3 Dietary counseling and surveillance | CPT/HCPCS: 97803 ==

== ENCOUNTER 2022-08-21 13:51 | Outpatient (AMB) | payer MEDICARE, SELFPAY ==
--- NOTE | 2022-08-21 13:58 | MHC.AMNUTRGE ---
Intake VS Expanded 08/21/22 14:20 Height 5 ft 9 in Weight 309 lb BMI 45.6 Body Fat 124 Body Fat Percentage 40.3 Muscle Mass 175.8 Visceral Mass 29 Water Mass 143.4 BMR 2,591 Intake Visit Reasons: (OV) PO LSG 06/22/22 Allergies METFORMIN Adverse Reaction (Mild, Uncoded 06/05/22 10:13) Diarrhea HPI Nutrition Presentation Details LSG DOS 06/22/22 [employer] weight (03/13/22) 377# Preop weight (06/15/22) 346# weight at 4 wks PO 311# Last weight 307# current weight at 2MO PO 309 Has Phillip 2 glucose sensor - today AM fasting was 135, normally runs 150-175. He has been able to discontinue all T2DM meds Reason for consult elevated BMI Diet Assmnt Details Found a protein shake he really enjoys, likes 3 Ensure Arnol shakes [place] , rice Pilaf and Vitamins: celebrate MVI . taking with shake, reports some nausea Hydration: inconsistent , today inadequate. but some days is at goal 3 bottles Exercise: 1/4 mile daily, working with a personal vehicle advisor 2x per week at the gym. Notices a big improvement in physical fitness . Enjoys working with his life trainer. last appt we discussed adding in another Dietary counseling reduction Diagnosis Nutrition problem #1 overweight/obesity As related to (etiology) #1 excess energy intake and physical inactivity As evidenced by (sign/symptom) #1 high BMI Monitoring/Goals Nutrition problem monitoring total energy intake, level of knowledge/skill, total PRO intake, total CHO intake, weight and oral fluids Outcome progress progressing Learning/Education Readiness to learn excellent Stages of change action Educational materials provided Yes (post op 6 wks food list ) Most Recent Diabetes Results: Cholesterol 86 mg/dL 06/15/22 HDL Cholesterol 24 mg/dL 06/15/22 Triglycerides 105 mg/dL 06/15/22 Creatinine 1.17 mg/dL (0.5-1.4) 06/23/22 Blood Urea Nitrogen 27 mg/dL (9-16) H 06/23/22 Sodium 138 mmol/L (135-145) 06/23/22 Potassium 5.4 mmol/L (3.3-5.1) H 06/23/22 Chloride 105 mmol/L (96-108) 05/12/23 Carbon Dioxide 22 mmol/L (22-29) 06/23/22 Calcium 9.2 mg/dL (8.4-10.2) 06/23/22 AST 14 U/L (5-37) 06/15/22 ALT 11 U/L (0-40) 06/15/22 Total Protein 7.1 g/dL (6.5-8.0) 06/15/22 Albumin 4.2 g/dL (3.5-5.0) 06/15/22 [facility] Medical History Adjustment disorder Asthma CAD (coronary artery disease) Chronic renal insufficiency Diabetes DJD (degenerative joint disease) Elevated cholesterol History of MRSA infection HTN (hypertension) Hypothyroid Insulin dependent type 2 diabetes mellitus Liver fibrosis Lymphedema Murmur Nephrolithiasis PVCs (premature ventricular contractions) Sleep apnea Sleep apnea treated with continuous positive airway pressure (CPAP) Varicose vein of leg Surgical History History of knee replacement Hx of colonoscopy Hx of heart artery stent Hx of varicose vein ligation Family History Mother Diabetes High cholesterol Hypertension Cancer Father Hypertension Diabetes Heart disease Sister Diabetes Social History Household Members: Significant Other Housing: House Are you a primary farm or ranch animal caretaker to a significant other at home: No Do you presently have visiting nurse or other home services: No Alcohol intake: current Alcohol intake frequency: holidays/special occasions only Patient Tobacco Use Status: Never used Tobacco Assessment & Plan Assessment & Plan (1) Insulin dependent type 2 diabetes mellitus: Code(s): E11.9 - Type 2 diabetes mellitus without complications; Z79.4 - prison (current) use of insulin (2) Morbid obesity: Code(s): E66.01 - Morbid (severe) obesity due to excess calories Medications: Discontinued cholecalciferol (vitamin D3) 125 mcg PO DAILY 90 caps 0RF cyanocobalamin (vitamin B-12) 500 mcg PO DAILY 60 tabs 0RF Patient Instructions: continue 3 Ensure Max shakes , 1 meal with 2oz protein and 1oz veg . Fluid goal around 64oz per day. Continue MVI but take with dinner for better tolerance . Encouraged increasing exercise. Provided pt with encouragement, has done very well. Recommend eliminating carbs from diet for now and see how this impacts his weight. follow up with me 09/18 1pm but encouraged communication as needed in the meantime Coding Level of Care Code Nutr Indiv Subseq ([id number]) Diagnoses Insulin dependent type 2 diabetes mellitus E11.9; Z79.4 Morbid obesity E66.01 Time Spent (min) 45
[2022-08-21 14:20] VITALS: BMI 45.6
== END 2022-08-21 15:17 | disposition home or self-care (01) ==
PROVIDERS: PCP Internal Medicine; Visit Provider Dietitian, Registered
DX: E11.9 Type 2 diabetes mellitus without complications (principal); Z79.4 Long term (current) use of insulin; E66.01 Morbid (severe) obesity due to excess calories

== ENCOUNTER → 2022-08-21 13:51 | Outpatient (BNVA) | payer MEDICARE, SELFPAY | PROVIDERS: PCP Internal Medicine; Visit Provider Dietitian, Registered | DX: E11.9 Type 2 diabetes mellitus without complications (principal); E66.01 Morbid (severe) obesity due to excess calories; Z68.42 Body mass index [BMI] 45.0-49.9, adult; Z79.4 Long term (current) use of insulin; Z71.3 Dietary counseling and surveillance | CPT/HCPCS: 97803 ==

== ENCOUNTER → 2022-09-18 12:35 | Outpatient (BNVA) | payer MEDICARE, SELFPAY | PROVIDERS: PCP Internal Medicine; Visit Provider Dietitian, Registered | DX: E66.9 Obesity, unspecified (principal); Z68.41 Body mass index [BMI] 40.0-44.9, adult | CPT/HCPCS: 97803 ==

== ENCOUNTER → 2022-10-19 12:48 | Outpatient (BNVA) | payer MEDICARE, SELFPAY | PROVIDERS: PCP Internal Medicine; Visit Provider Dietitian, Registered | DX: E66.01 Morbid (severe) obesity due to excess calories (principal); Z68.41 Body mass index [BMI] 40.0-44.9, adult; Z71.3 Dietary counseling and surveillance | CPT/HCPCS: 97803 ==